=== PATIENT | male | born 1985 | race Hispanic/Latino ===

== ENCOUNTER 2016-06-11 14:58 | Emergency (ER) | payer SELFPAY ==
[2016-06-11] MEDS ORDERED: DECADRON IM ONE (15:34)
[2016-06-11] MEDS ORDERED: TORADOL IM ONE (15:34)
[2016-06-11] MEDS ORDERED: NORCO 5/325 PO ONE (15:34)
--- NOTE | 2016-06-11 16:46 | XRay Report ---
LEFT SHOULDER: Pain. Routine views demonstrate normal bony and soft tissue structures with normal joint alignment of the shoulder. IMPRESSION: Normal study.
[2016-06-11 17:09] VITALS: BP 124/76
--- NOTE | 2016-06-11 17:17 | Emergency Department Report ---
Entered by RAVEN STODDARD, acting as scribe for TRISTIN CAI PA. Upper Extremity - HPI Chief Complaint: Extremity Problem,Nontraumatic Stated Complaint: LT SHOULDER PAIN Upper Extremity: Left Shoulder Occurred When: >5 Days (3 months) Mechanism: Unsure Severity: mild Symptoms: Yes Pain with Movement, No Deformity, No Limited Range of Movement, No Numbness, No Weakness, No Swelling, No Bruising/Ecchymosis, No Laceration or Abrasion Other History: 30 year old male with a PMHx of anxiety and IV drug use presents to the ED c/o left shoulder pain that began 3 months ago. Denies radiation of pain. Denies left shoulder ecchymosis, laceration, swelling, chest pain, SOB, numbness, and tingling. Denies any injury to left shoulder. Denies having a PCP. 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 Uses tobacco products daily. NKDA. ED Review of Systems ROS: Stated complaint: LT SHOULDER PAIN Other details as noted in HPI Comment: All other systems reviewed and negative Constitutional: denies: chills, fever, weakness, other (tingling) Respiratory: denies: cough, shortness of breath, wheezing Cardiovascular: denies: chest pain Endocrine: no symptoms reported Gastrointestinal: denies: nausea, vomiting Musculoskeletal: arthralgia, other (left shoulder pain). denies: back pain, joint swelling (left shoulder) Skin: denies: rash, other (left shoulder ecchymosis and laceration) Neurological: denies: headache, numbness ED Past Medical Hx - Past Medical History Hx Psychiatric Treatment: Yes (Anxiety) Additional medical history: IV drug abuse - Surgical History Past Surgical History?: No - Social History Smoking Status: Current Every Day Smoker Substance Use Type: None - Medications Home Medications: Home Medications Medication Instructions Recorded Confirmed Last Taken Type Cephalexin [Keflex] 500 mg PO Q8HR #30 cap 08/30/15 Unknown Rx Ibuprofen [Motrin] 600 mg PO Q8H PRN #15 tablet 08/30/15 Unknown Rx Sulfamethoxazole/Trimethoprim 1 each PO BID #20 tablet 08/30/15 Unknown Rx [Bactrim DS TAB] Ketorolac [Toradol] 10 mg PO Q6H PRN #20 tablet 06/11/16 Unknown Rx methOCARBAMOL [Robaxin TAB] 500 mg PO BID #20 tab 06/11/16 Unknown Rx Upper Extremity Exam - Exam General: Vital signs noted. Alert and acting appropriately. General: well nourished, well developed, nontoxic in appearance, in no acute distress Head and Torso: No HEENT Abnormality, No Neck Tenderness, No Chest/Lungs Abnormality, No Abdominal Tenderness, No Back Tenderness Shoulder Exam: Yes Normal Range of Motion in Shoulder, No Shoulder Tenderness ( left shoulder), No Clavicle Tenderness, No Shoulder Deformity, No AC Joint Tenderness Arm Exam: No Arm/Humerus Tenderness, No Arm Deformity Elbow: Yes Normal Range of Motion in Elbow, No Elbow Tenderness, No Elbow Deformity Forearm: No Forearm Tenderness, No Forearm Deformity, No Pain with Pronation, No Pain with Supination Wrist: Yes Normal ROM in Wrist, No Wrist Tenderness, No Wrist Deformity, No Snuffbox Tenderness, No Pain with Axial Thumb Compression Hand: Yes Normal ROM in Digit(s), No Hand Tenderness, No Hand Deformity, No Digit Tenderness, No Digit(s) Deformity, No Tendon Dysfunction CMS Exam: Yes Normal Distal Pulses, Yes Normal Capillary Refill, Yes Normal Distal Sensation, No Broken Skin ED Course Vital Signs 06/11/16 15:03 Temperature 98.1 F Pulse Rate 78 Respiratory 18 Rate Blood Pressure 122/81 O2 Sat by Pulse 98 Oximetry ED Medical Decision Making - Radiology Data Radiology results: report reviewed Xr shoulder 2 view Left Normal study per radiologist. Normal bony and soft tissues structures with normal joint alignment of the shoulder. - Medical Decision Making 30 year old male presents to ED with left shoulder pain [id number]. patient denies having previous imaging. Patient has normal imaging study during today's ED visit. Patient is in no apparent distress upon my palpation of his shoulder and has normal ROM, normal radial and brachial pulses in bilateral upper extremities and normal sensation in bilateral upper extremities. patient is stable, neurologically intact and in no acute distress. Critical care attestation.: If time is entered above; I have spent that time in minutes in the direct care of this critically ill patient, excluding procedure time. ED Disposition Clinical Impression: Shoulder joint pain Qualifiers: Laterality: left Qualified Code(s): M25.512 - Pain in left shoulder Disposition: DISCHARGED TO HOME OR SELFCARE Is pt being admited?: No Does the pt Need Aspirin: No Condition: Stable Instructions: Shoulder Sprain (ED) Prescriptions: Ketorolac [Toradol] 10 mg PO Q6H PRN #20 tablet PRN Reason: Pain methOCARBAMOL [Robaxin TAB] 500 mg PO BID #20 tab Referrals: PRIMARY CARE, [Primary Care Provider] - 3-5 Days REX BRYAN MD [Staff Physician] - 3-5 Days Forms: This documentation as recorded by the RICHI yu JASMINE,accurately reflects the service I personally performed and the decisions made by ,TRISTIN CAI PA.
== END 2016-06-11 17:08 | disposition home or self-care (01) ==
LOC: ED 14:58
DX: M25.512 Pain in left shoulder (principal); F17.200 Nicotine dependence, unspecified, uncomplicated
CPT/HCPCS: 73030; 96372; 99283; J1100; J1885

== ENCOUNTER 2019-11-02 21:01 | Emergency (ER) | payer SELFPAY ==
[2019-11-02 21:07] VITALS: BP 134/73
--- NOTE | 2019-11-02 22:01 | XRay Report ---
RIGHT HAND 3 VIEW(S) INDICATION / CLINICAL INFORMATION: Right hand swelling and pain COMPARISON: None available. FINDINGS: BONES / JOINT(S): No acute fracture or subluxation. No significant arthritis. SOFT TISSUES: Mild generalized soft tissue swelling of the ring finger. ADDITIONAL FINDINGS: None. Signer Name: Star Yuan MD Signed: 11/02/2019 9:56 PM Workstation Name: [email or web address] [id number]
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
[2019-11-02] MEDS ORDERED: oxyCODONE /ACETAMINOPHEN 5-325MG TAB PO ONE (22:14)
== END 2019-11-02 23:10 | disposition home or self-care (01) ==
LOC: ED 21:01
DX: S63.91XA Sprain of unspecified part of right wrist and hand, initial encounter (principal); F41.9 Anxiety disorder, unspecified; F17.200 Nicotine dependence, unspecified, uncomplicated; F12.10 Cannabis abuse, uncomplicated; Z79.1 Long term (current) use of non-steroidal anti-inflammatories (NSAID); Z79.899 Other long term (current) drug therapy; X58.XXXA Exposure to other specified factors, initial encounter; Y93.89 Activity, other specified; Y92.89 Other specified places as the place of occurrence of the external cause; Y99.8 Other external cause status

== ENCOUNTER 2019-11-07 07:40 | Emergency (ER) | payer SELFPAY ==
[2019-11-07 08:01] VITALS: BP 153/81
--- NOTE | 2019-11-07 10:06 | Emergency Department Report ---
ED Upper Extremity Inj HPI - General Chief Complaint: Extremity Injury, Upper Stated Complaint: RT HAND INJURY/PAIN Time Seen by Provider: 11/07/19 09:33 Source: patient Mode of arrival: Ambulatory Limitations: No Limitations - History of Present Illness Initial Comments: This is a 34-year-old male nontoxic, well nourished in appearance, no acute signs of distress presents to the ED with c/o of acute on chronic right hand pain x 1 week. Patient was seen on the of this month and was diagnosed with a right hand sprain. X-rays that was performed showed negative for fracture or dislocation. Patient denies following up with a orthopedic doctor. Patient denies any acute injuries or trauma. Patient stated pain is still there. Patient denies any numbness, tingling, fever, chills, nausea, vomiting, chest pain, shortness of breath, headache or stiff neck. Patient denies any joint swelling. Denies any decreased range of motion or decreased sensation. Denies any joint redness. Denies any allergies. MD Complaint: Injury to:: right, hand Other Extremity Injury: Hand: Right Severity scale (0 -10): 8 Improves With: immobilization Worsens With: movement of extremity Associated Symptoms: denies other symptoms. denies: weakness, numbness, neck pain, suspects foreign body, nausea/vomiting, heard/felt popping sensat - Related Data Previous Rx's Medication Instructions Recorded Last Taken Type Ibuprofen [Motrin] 600 mg PO Q8H PRN #15 tablet 08/30/15 Unknown Rx Sulfamethoxazole/Trimethoprim 1 each PO BID #20 tablet 08/30/15 Unknown Rx [Bactrim DS TAB] cephALEXin [Keflex] 500 mg PO Q8HR #30 cap 08/30/15 Unknown Rx Ketorolac [Toradol] 10 mg PO Q6H PRN #20 tablet 06/11/16 Unknown Rx methOCARBAMOL [Robaxin TAB] 500 mg PO BID #20 tab 06/11/16 Unknown Rx Acetaminophen/Codeine [Tylenol 1 tab PO Q8H PRN #4 tab 11/02/19 Unknown Rx /Codeine # 3 tab] Diclofenac Sodium 50 mg PO TID PRN #21 tablet. 11/02/19 Unknown Rx Allergies Allergy/AdvReac Type Severity Reaction Status Date / Time No Known Allergies Allergy Verified 08/30/15 19:17 ED Review of Systems ROS: Stated complaint: RT HAND INJURY/PAIN Other details as noted in HPI Constitutional: denies: chills, fever Eyes: denies: eye pain, eye discharge, vision change ENT: denies: ear pain, throat pain Respiratory: denies: cough, shortness of breath, wheezing Cardiovascular: denies: chest pain, palpitations Endocrine: no symptoms reported Gastrointestinal: denies: abdominal pain, nausea, diarrhea Genitourinary: denies: urgency, dysuria Musculoskeletal: denies: back pain, joint swelling, arthralgia Skin: denies: rash, lesions Neurological: denies: headache, weakness, paresthesias Psychiatric: denies: anxiety, depression Hematological/Lymphatic: denies: easy bleeding, easy bruising ED Past Medical Hx - Past Medical History Previous Medical History?: Yes Hx Psychiatric Treatment: Yes (Anxiety) Additional medical history: IV drug abuse - Social History Smoking Status: Current Every Day Smoker Substance Use Type: Marijuana - Medications Home Medications: Home Medications Medication Instructions Recorded Confirmed Last Taken Type Ibuprofen [Motrin] 600 mg PO Q8H PRN #15 tablet 08/30/15 Unknown Rx Sulfamethoxazole/Trimethoprim 1 each PO BID #20 tablet 08/30/15 Unknown Rx [Bactrim DS TAB] cephALEXin [Keflex] 500 mg PO Q8HR #30 cap 08/30/15 Unknown Rx Ketorolac [Toradol] 10 mg PO Q6H PRN #20 tablet 06/11/16 Unknown Rx methOCARBAMOL [Robaxin TAB] 500 mg PO BID #20 tab 06/11/16 Unknown Rx Acetaminophen/Codeine [Tylenol 1 tab PO Q8H PRN #4 tab 11/02/19 Unknown Rx /Codeine # 3 tab] Diclofenac Sodium 50 mg PO TID PRN #21 tablet. 11/02/19 Unknown Rx ED Physical Exam - General Limitations: No Limitations General appearance: alert, in no apparent distress - Head Head exam: Present: atraumatic, normocephalic - Eye Eye exam: Present: normal appearance - Neck Neck exam: Present: full ROM - Respiratory Respiratory exam: Absent: respiratory distress - Cardiovascular Cardiovascular Exam: Present: regular rate - Extremities Exam Extremities exam: Present: full ROM, tenderness, normal capillary refill. Absent: joint swelling - Expanded Upper Extremity Exam Right General: Present: normal inspection Shoulder Exam: Present: normal inspection, full ROM. Absent: tenderness, swelling Upper Arm exam: Present: normal inspection, full ROM. Absent: tenderness, swelling Elbow exam: Present: normal inspection, full ROM. Absent: tenderness, swelling Forearm Wrist exam: Present: normal inspection, full ROM. Absent: tenderness, swelling, abrasion, laceration, ecchymosis, deformity, crepidus, dislocation, erythema, tenderness over anatomical snuff box, pain with axial thumb loading Hand Wrist exam: Present: full ROM, tenderness. Absent: swelling, abrasion, laceration, ecchymosis, deformity, crepidus, dislocation, erythema, amputation, nail avulsion, subungual hematoma Hand L/R Back: 1 - pain here Vascular: Present: normal capillary refill. Absent: vascular compromise (Neurovascular within normal limits) - Back Exam Back exam: Present: full ROM - Neurological Exam Neurological exam: Present: alert, oriented X3, normal gait - Psychiatric Psychiatric exam: Present: normal affect, normal mood - Skin Skin exam: Present: warm, dry, intact, normal color. Absent: rash ED Course Vital Signs 11/07/19 08:00 Temperature 98.3 F Pulse Rate 72 Respiratory 18 Rate Blood Pressure 153/81 [Right] O2 Sat by Pulse 99 Oximetry - Reevaluation(s) Reevaluation #1: 11/07/19 10:08 Patient is speaking in full sentences with no signs of distress noted. ED Medical Decision Making - Radiology Data Referring Physician: JENNIFER GRIMES Patient Name: TSERING STRONG Date of : 1985 Sex: Male Report Date: 2019-11-02 Report Status: Finalized [address] [address] XRay Report Signed Patient: TSERING STRONG MR#: [id number] : 1985 Acct:[id number] Age/Sex: 34 / M ADM Date: 11/02/19 Loc: ED Attending Dr: Ordering Physician: JENNIFER GRIMES MD Date of Service: 11/02/19 Procedure(s): XR hand 3+V RT Accession Number(s): [id number] cc: JENNIFER GRIMES MD Fluoro Time In Minutes: RIGHT HAND 3 VIEW(S) INDICATION / CLINICAL INFORMATION: Right hand swelling and pain COMPARISON: None available. FINDINGS: BONES / JOINT(S): No acute fracture or subluxation. No significant arthritis. SOFT TISSUES: Mild generalized soft tissue swelling of the ring finger. ADDITIONAL FINDINGS: None. Signer Name: Star Chris MD Signed: 11/02/2019 9:56 PM Workstation Name: [id number] Transcribed By: Dictated By: STAR CHRIS Electronically Authenticated By: STAR CHRIS Signed Date/Time: 11/02/192155 DD/ 54 TD/TT: XRAY FROM 11/02/2019 - Medical Decision Making This is a 34-year-old male that presents with chronic right hand pain. Patient is stable and was examined by me. I referred patient to an orthopedic doctor for further evaluation for possible MRI. X-ray has been obtained during previous visit and dictated by the radiologist. Patient is notified of the x- ray report with noted by the patient. Patient does have normal ROM with no tenderness and no joint swelling. No ecchymosis. no joint redness or swelling. Not warm to touch. No signs of cellulites present. Patient was instructed to RICE therapy. Patient also was instructed to take [id number] medicine such as Motrin for pain control. At time of discharge, the patient does not se em toxic or ill in appearance. No acute signs of distress noted. Patient agrees to discharge treatment plan of care. No further questions noted by the patient. Critical care attestation.: If time is entered above; I have spent that time in minutes in the direct care of this critically ill patient, excluding procedure time. ED Disposition Clinical Impression: Sprain of right hand Qualifiers: Encounter type: initial encounter Qualified Code(s): S63.91XA - Sprain of unspecified part of right wrist and hand, initial encounter Disposition: -07 [facility] SCREENING EXAM-LEFT Is pt being admited?: No Does the pt Need Aspirin: No Condition: Stable Instructions: RICE Therapy (ED) Additional Instructions: Follow-up with a orthopedic doctor in 3-5 days or if symptoms worsen and continue return to emergency room as soon as possible. No physical activity that extremity until cleared by orthopedic doctor Referrals: PRIMARY CARE, [Primary Care Provider] - 3-5 Days DARIELA STRONG MD [Staff Physician] - 3-5 Days GAURANG BARTON MD [Staff Physician] - 3-5 Days Forms: Work/School Release Form(ED)
== END 2019-11-07 11:05 | disposition left against medical advice (07) ==
LOC: ED 07:40
DX: M79.641 Pain in right hand (principal); Z53.21 Procedure and treatment not carried out due to patient leaving prior to being seen by health care provider

== ENCOUNTER 2020-04-21 14:05 | Emergency (ER) | payer SELFPAY ==
[2020-04-21] MEDS ORDERED: SODIUM CHLORIDE 0.9% 1000 ML 1,000 ML IV ONE (14:27)
[2020-04-21] MEDS ORDERED: KETOROLAC 30 MG/1 ML INJ IV ONE (14:27)
[2020-04-21 15:02] LABS: Basophils # (Auto) 0.1 K/mm3 (0.0-0.1); Eosinophils # (Auto) 0.3 K/mm3 (0.0-0.4); Eosinophils % (Auto) 2.4 % (0.0-4.3); Hematocrit 46.9 % (35.5-45.6); Lymphocytes # (Auto) 2.5 K/mm3 (1.2-5.4); Mean Corpuscular HGB Conc 34 % (32-34); Mean Corpuscular Volume 87 fl (84-94); Monocytes # (Auto) 0.8 K/mm3 (0.0-0.8); Platelet Count 299 K/mm3 (140-440); Red Blood Count 5.41 M/mm3 (3.65-5.03); Red Cell Distribution Width 13.6 % (13.2-15.2)
[2020-04-21 15:36] LABS: Alanine Aminotransferase 21 units/L (7-56); Albumin 4.6 g/dL (3.9-5); BUN/Creatinine Ratio 12; Blood Urea Nitrogen 11 mg/dL (9-20); Calcium 9.4 mg/dL (8.4-10.2); Hemolysis Index 14
--- NOTE | 2020-04-21 16:31 | Cat Scan Report ---
FACIAL CT 04/21/2020 HISTORY: Right facial swelling. Periorbital cellulitis. Contrast: Omnipaque 300, 100 mL FINDINGS: Contrast enhanced CT images of the facial structures were obtained. Images are evaluated in the axial, coronal, and sagittal planes. Cellulitic edema is present on the right side of the face, extending upward from the level of the man dible to the periorbital structures. There is no evidence of subcutaneous fluid collection or mass. Paranasal sinuses are essentially clear. Intraorbital structures are unremarkable. There is some periodontal lucency associated with one of the right anterior maxillary tooth roots, po ssibly dehiscent laterally. This may be a source of superficial soft tissue infection and cellulitis. IMPRESSION: Right facial cellulitic changes without evidence of fluid collection. Right anterior maxillary dental disease. This may be related to the source of infection. All CT scans at this location are performed using dose reduction to ALARA by means of automated expos ure control. Signer Name: Tyler Aguirre MD Signed: 04/21/2020 4:27 PM Workstation Name: [id number]
--- NOTE | 2020-04-21 17:00 | Emergency Department Report ---
ED ENT HPI - General Chief complaint: Dental/Oral Stated complaint: TOOTH PAINS FACIAL SWELLING Time Seen by Provider: 04/21/20 14:19 Source: patient Mode of arrival: Ambulatory Limitations: No Limitations - History of Present Illness Initial comments: The patient is a 34-year-old male who presents to ED complaining of pain in the right side of his mouth and associated facial swelling x 6 days . Patient states that the pain started 5 days ago and has increased in severity over the last 2-3 days. The pain is exacerbated by eating and opening of the mouth. Patient states the pain is alleviated initially with pain medication but comes back. Patient states that it radiates towards ear. Patient describes a as a throbbing, pressure-like sensation. Patient states otherwise well and has no other complaints. Patient has had no fevers and no chills. No chest pain, no shortness of breath. No abdominal pain. No shortness of breath or recent trauma to the face. MD complaint: tooth pain - Related Data Previous Rx's Medication Instructions Recorded Last Taken Type Sulfamethoxazole/Trimethoprim 1 each PO BID #20 tablet 08/30/15 Unknown Rx [Bactrim DS TAB] cephALEXin [Keflex] 500 mg PO Q8HR #30 cap 08/30/15 Unknown Rx Ketorolac [Toradol] 10 mg PO Q6H PRN #20 tablet 06/11/16 Unknown Rx methOCARBAMOL [Robaxin TAB] 500 mg PO BID #20 tab 06/11/16 Unknown Rx Diclofenac Sodium 50 mg PO TID PRN #21 tablet. 11/02/19 Unknown Rx Acetaminophen/Codeine [Tylenol 1 tab PO Q8H PRN #4 tab 04/21/20 Unknown Rx /Codeine # 3 tab] Clindamycin [Clindamycin CAP] 300 mg PO Q8H #21 cap 04/21/20 Unknown Rx Ibuprofen [Motrin 600 MG tab] 600 mg PO Q8H PRN #15 tablet 04/21/20 Unknown Rx Allergies Allergy/AdvReac Type Severity Reaction Status Date / Time No Known Allergies Allergy Verified 08/30/15 19:17 ED Dental HPI - General Chief complaint: Dental/Oral Stated complaint: TOOTH PAINS FACIAL SWELLING Time Seen by Provider: 04/21/20 14:19 Source: patient Mode of arrival: Ambulatory Limitations: No Limitations - Related Data Previous Rx's Medication Instructions Recorded Last Taken Type Sulfamethoxazole/Trimethoprim 1 each PO BID #20 tablet 08/30/15 Unknown Rx [Bactrim DS TAB] cephALEXin [Keflex] 500 mg PO Q8HR #30 cap 08/30/15 Unknown Rx Ketorolac [Toradol] 10 mg PO Q6H PRN #20 tablet 06/11/16 Unknown Rx methOCARBAMOL [Robaxin TAB] 500 mg PO BID #20 tab 06/11/16 Unknown Rx Diclofenac Sodium 50 mg PO TID PRN #21 tablet. 11/02/19 Unknown Rx Acetaminophen/Codeine [Tylenol 1 tab PO Q8H PRN #4 tab 04/21/20 Unknown Rx /Codeine # 3 tab] Clindamycin [Clindamycin CAP] 300 mg PO Q8H #21 cap 04/21/20 Unknown Rx Ibuprofen [Motrin 600 MG tab] 600 mg PO Q8H PRN #15 tablet 04/21/20 Unknown Rx Allergies Allergy/AdvReac Type Severity Reaction Status Date / Time No Known Allergies Allergy Verified 08/30/15 19:17 ED Review of Systems ROS: Stated complaint: TOOTH PAINS FACIAL SWELLING Other details as noted in HPI Comment: All other systems reviewed and negative ED Past Medical Hx - Past Medical History Previous Medical History?: Yes Hx Psychiatric Treatment: Yes (Anxiety) Additional medical history: IV drug abuse - Surgical History Past Surgical History?: No - Social History Smoking Status: Current Every Day Smoker Substance Use Type: Heroin - Medications Home Medications: Home Medications Medication Instructions Recorded Confirmed Last Taken Type Sulfamethoxazole/Trimethoprim 1 each PO BID #20 tablet 08/30/15 Unknown Rx [Bactrim DS TAB] cephALEXin [Keflex] 500 mg PO Q8HR #30 cap 08/30/15 Unknown Rx Ketorolac [Toradol] 10 mg PO Q6H PRN #20 tablet 06/11/16 Unknown Rx methOCARBAMOL [Robaxin TAB] 500 mg PO BID #20 tab 06/11/16 Unknown Rx Diclofenac Sodium 50 mg PO TID PRN #21 tablet. 11/02/19 Unknown Rx Acetaminophen/Codeine [Tylenol 1 tab PO Q8H PRN #4 tab 04/21/20 Unknown Rx /Codeine # 3 tab] Clindamycin [Clindamycin CAP] 300 mg PO Q8H #21 cap 04/21/20 Unknown Rx Ibuprofen [Motrin 600 MG tab] 600 mg PO Q8H PRN #15 tablet 04/21/20 Unknown Rx ED Physical Exam - General Limitations: No Limitations General appearance: alert, in no apparent distress - Head Head exam: Present: atraumatic, normocephalic - Eye Eye exam: Present: normal appearance, PERRL, EOMI, other (Facial/cheek tenderness and swelling noted). Absent: conjunctival injection, periorbital swelling, periorbital tenderness Pupils: Present: normal accommodation - ENT ENT exam: Present: mucous membranes moist - Expanded ENT Exam Expanded Mouth exam: Present: normal external inspection Teeth exam: Present: dental caries, fractured tooth # 1 - Fractured, Dental Tenderness Throat exam: Positive: normal inspection. Negative: tonsillomegaly, tonsillar exudate, R peritonsillar mass - Neck Neck exam: Present: normal inspection - Respiratory Respiratory exam: Present: normal lung sounds bilaterally. Absent: respiratory distress - Cardiovascular Cardiovascular Exam: Present: regular rate, normal rhythm. Absent: systolic murmur, diastolic murmur, rubs, gallop - GI/Abdominal GI/Abdominal exam: Present: soft, normal bowel sounds - Rectal Rectal exam: Present: deferred - Extremities Exam Extremities exam: Present: normal inspection - Back Exam Back exam: Present: normal inspection - Neurological Exam Neurological exam: Present: alert, oriented X3 - Psychiatric Psychiatric exam: Present: normal affect, normal mood - Skin Skin exam: Present: warm, dry, intact, normal color. Absent: rash ED Course Vital Signs 04/21/20 04/21/20 14:05 15:36 Temperature 98.4 F Pulse Rate 92 H Respiratory 18 16 Rate Blood Pressure 141/91 O2 Sat by Pulse 99 Oximetry ED Medical Decision Making - Lab Data Result diagrams: 04/21/20 14:42 04/21/20 14:42 Laboratory Last Values WBC 11.5 K/mm3 (4.5-11.0) H 04/21/20 14:42 RBC 5.41 M/mm3 (3.65-5.03) H 04/21/20 14:42 Hgb 16.0 gm/dl (11.8-15.2) H 04/21/20 14:42 Hct 46.9 % (35.5-45.6) H 04/21/20 14:42 MCV 87 fl (84-94) 04/21/20 14:42 MCH 30 pg (28-32) 04/21/20 14:42 MCHC 34 % (32-34) 04/21/20 14:42 RDW 13.6 % (13.2-15.2) 04/21/20 14:42 Plt Count 299 K/mm3 (140-440) 04/21/20 14:42 Lymph % (Auto) 22.0 % (13.4-35.0) 04/21/20 14:42 [place] % (Auto) 7.0 % (0.0-7.3) 04/21/20 14:42 Eos % (Auto) 2.4 % (0.0-4.3) 04/21/20 14:42 Baso % (Auto) 1.0 % (0.0-1.8) 04/21/20 14:42 Lymph # (Auto) 2.5 K/mm3 (1.2-5.4) 04/21/20 14:42 [place] # (Auto) 0.8 K/mm3 (0.0-0.8) 04/21/20 14:42 Eos # (Auto) 0.3 K/mm3 (0.0-0.4) 04/21/20 14:42 Baso # (Auto) 0.1 K/mm3 (0.0-0.1) 04/21/20 14:42 Seg Neutrophils % 67.6 % (40.0-70.0) 04/21/20 14:42 Seg Neutrophils # 7.8 K/mm3 (1.8-7.7) H 04/21/20 14:42 Sodium 141 mmol/L (137-145) 04/21/20 14:42 Potassium 4.4 mmol/L (3.6-5.0) 04/21/20 14:42 Chloride 103.7 mmol/L (98-107) 04/21/20 14:42 Carbon Dioxide 23 mmol/L (22-30) 04/21/20 14:42 Anion Gap 19 mmol/L 04/21/20 14:42 BUN 11 mg/dL (9-20) 04/21/20 14:42 Creatinine 0.9 mg/dL (0.8-1.3) 04/21/20 14:42 Estimated GFR > 60 ml/min 04/21/20 14:42 BUN/Creatinine Ratio 12 % 04/21/20 14:42 Glucose 107 mg/dL (75-100) H 04/21/20 14:42 Calcium 9.4 mg/dL (8.4-10.2) 04/21/20 14:42 Total Bilirubin 0.30 mg/dL (0.1-1.2) 04/21/20 14:42 AST 18 units/L (5-40) 04/21/20 14:42 ALT 21 units/L (7-56) 04/21/20 14:42 Alkaline Phosphatase 63 units/L (35-129) 04/21/20 14:42 Total Protein 7.6 g/dL (6.3-8.2) 04/21/20 14:42 Albumin 4.6 g/dL (3.9-5) 04/21/20 14:42 Albumin/Globulin Ratio 1.5 % 04/21/20 14:42 - Radiology Data Radiology results: report reviewed, image reviewed FACIAL CT 04/21/2020 HISTORY: Right facial swelling. Periorbital cellulitis. Contrast: Omnipaque 300, 100 mL FINDINGS: Contrast enhanced CT images of the facial structures were obtained. Images are evaluated in the axial, coronal, and sagittal planes. Cellulitic edema is present on the right side of the face, extending upward from the level of the mandible to the periorbital structures. There is no evidence of subcutaneous fluid collection or mass. Paranasal sinuses are essentially clear. Intraorbital structures are unremarkable. There is some periodontal lucency associated with one of the right anterior maxillary tooth roots, possibly dehiscent laterally. This may be a source of superficial soft tissue infection and cellulitis. IMPRESSION: Right facial cellulitic changes without evidence of fluid collectio n. Right anterior maxillary dental disease. This may be related to the source of infection. All CT scans at this location are performed using dose reduction to ALARA by means of automated exposure control. Signer Name: Tyler Aguirre MD Signed: 04/21/2020 4:27 PM Workstation Name: [id number] Transcribed By: BRITTNEY Dictated By: Tyler Aguirre MD Electronically Authenticated By: Tyler Aguirre MD Signed Date/Time: 04/21/20 7936 - Medical Decision Making 34-year-old male who presents with right-sided Facial pain secondary to odontogenic caries ED course: Patient received in the mycin, Toradol in the ED Odontogenic infection versus ear infection. Based upon history and physical examination, pain is a result of an infection of tooth number 4 and that the pain Pt feels on the right side of his face and towards the ear is referred pain from this infectious process. Pt has no evidence of acute impending airway compromise. At this point, patient will be discharged home on some antibiotics and pain trial, she will do well with an outpatient course of antibiotics. Follow up with the Dental Clinic as referred Vital signs are normal patient is in no acute distress. Pt had an effect uneventful ED stay Critical care attestation.: If time is entered above; I have spent that time in minutes in the direct care of this critically ill patient, excluding procedure time. ED Disposition Clinical Impression: Dental abscess, Facial cellulitis Disposition: TO HOME OR SELFCARE Is pt being admited?: No Does the pt Need Aspirin: No Condition: Stable Instructions: Cellulitis, Adult, Dental Abscess Additional Instructions: Make sure to follow up with the dentist as discussed. Take all your medications as you've been prescribed. If you have any worsening symptoms or develop new symptoms please return to ED immediately. Prescriptions: Clindamycin [Clindamycin CAP] 300 mg PO Q8H #21 cap Ibuprofen [Motrin 600 MG tab] 600 mg PO Q8H PRN #15 tablet PRN Reason: Pain Acetaminophen/Codeine [Tylenol /Codeine # 3 tab] 1 tab PO Q8H PRN #4 tab PRN Reason: Pain , Severe (7-10) Referrals: [facility] [Outside] - 3-5 Days [facility] [Outside] - 3-5 Days Forms: Work/School Release Form(ED) Time of Disposition: 17:05
[2020-04-21 17:26] VITALS: BP 127/74
== END 2020-04-21 17:28 | disposition home or self-care (01) ==
LOC: ED 14:05
DX: K04.7 Periapical abscess without sinus (principal); L03.211 Cellulitis of face; F17.200 Nicotine dependence, unspecified, uncomplicated; F41.9 Anxiety disorder, unspecified; F19.90 Other psychoactive substance use, unspecified, uncomplicated; Z79.899 Other long term (current) drug therapy
CPT/HCPCS: 36415; 70487; 80053; 85025; 96365; 96375; 99284; J1885; J7030; Q9967

== ENCOUNTER 2020-08-03 18:26 | Emergency (ER) | payer SELFPAY ==
[2020-08-03 18:45] VITALS: BP 120/74
[2020-08-03] MEDS ORDERED: FAMOTIDINE 20 MG TAB PO ONE (21:34)
[2020-08-03 21:53] LABS: Basophils # (Auto) 0.1 K/mm3 (0.0-0.1); Basophils % (Auto) 0.7 % (0.0-1.8); Eosinophils # (Auto) 0.3 K/mm3 (0.0-0.4); Eosinophils % (Auto) 4.1 % (0.0-4.3); Hematocrit 44.7 % (35.5-45.6); Hemoglobin 15.5 gm/dl (11.8-15.2); Lymphocytes # (Auto) 2.6 K/mm3 (1.2-5.4); Lymphocytes % (Auto) 32.1 % (13.4-35.0); Mean Corpuscular HGB Conc 35 % (32-34); Mean Corpuscular Volume 88 fl (84-94); Monocytes # (Auto) 0.7 K/mm3 (0.0-0.8); Monocytes % (Auto) 9.2 % (0.0-7.3); Platelet Count 273 K/mm3 (140-440); Red Blood Count 5.09 M/mm3 (3.65-5.03); Red Cell Distribution Width 13.6 % (13.2-15.2)
[2020-08-03 22:19] LABS: Alanine Aminotransferase 17 units/L (7-56); Albumin 4.2 g/dL (3.9-5); BUN/Creatinine Ratio 13; Blood Urea Nitrogen 12 mg/dL (9-20); Calcium 8.6 mg/dL (8.4-10.2); Hemolysis Index 18
--- NOTE | 2020-08-04 00:06 | Emergency Department Report ---
ED Abdominal Pain HPI - General Chief Complaint: Abdominal Pain Stated Complaint: UPPER ABD PAIN Source: patient Mode of arrival: Ambulatory Limitations: No Limitations - History of Present Illness Initial Comments: Patient is a 35-year-old white male with a history of IV drug use and heavy tobacco abuse who presents to the ED with complaint of acute onset persistent epigastric pain intermittently for the last 1 month with nausea. Patient admits that he has been taking NSAIDs for the same pain most of the time without any food. Patient denies hematemesis, vomiting, diarrhea, chest pain, shortness of breath, dizziness, syncope, cough, palpitations, headache, diaphoresis, diarrhea, dysuria, testicular pain, hematochezia, change in vision or headache. MD Complaint: abdominal pain (Epigastric pain) -: Gradual, month(s) (1) Location: epigastric Radiation: none Migration to: epigastric Severity: moderate, severe Severity scale (0 -10): 6 Quality: aching, sharp Consistency: intermittent Improves With: nothing Worsens With: eating Associated Symptoms: denies other symptoms, nausea. denies: vomiting, diarrhea, fever, chills, constipation, hematemesis, hematochezia, melena, hematuria, anorexia, syncope, other - Related Data Previous Rx's Medication Instructions Recorded Last Taken Type Sulfamethoxazole/Trimethoprim 1 each PO BID #20 tablet 08/30/15 Unknown Rx [Bactrim DS TAB] cephALEXin [Keflex] 500 mg PO Q8HR #30 cap 08/30/15 Unknown Rx Ketorolac [Toradol] 10 mg PO Q6H PRN #20 tablet 06/11/16 Unknown Rx methOCARBAMOL [Robaxin TAB] 500 mg PO BID #20 tab 06/11/16 Unknown Rx Diclofenac Sodium 50 mg PO TID PRN #21 tablet. 11/02/19 Unknown Rx Acetaminophen/Codeine [Tylenol 1 tab PO Q8H PRN #4 tab 04/21/20 Unknown Rx /Codeine # 3 tab] Clindamycin [Clindamycin CAP] 300 mg PO Q8H #21 cap 04/21/20 Unknown Rx Ibuprofen [Motrin 600 MG tab] 600 mg PO Q8H PRN #15 tablet 04/21/20 Unknown Rx Dicyclomine [Bentyl] 20 mg PO Q6H PRN #30 tablet 08/04/20 Unknown Rx Esomeprazole Magnesium [NexIUM] 40 mg PO QDAY #30 capsule. 08/04/20 Unknown Rx Famotidine [Pepcid] 20 mg PO BID #60 tablet 08/04/20 Unknown Rx Ondansetron [Zofran Odt] 4 mg PO Q6HR PRN #15 tab.rapdis 08/04/20 Unknown Rx Allergies Allergy/AdvReac Type Severity Reaction Status Date / Time No Known Allergies Allergy Verified 08/30/15 19:17 ED Review of Systems ROS: Stated complaint: UPPER ABD PAIN Other details as noted in HPI Constitutional: denies: chills, fever Eyes: denies: eye pain, eye discharge, vision change ENT: denies: ear pain, throat pain Respiratory: denies: cough, shortness of breath, wheezing Cardiovascular: denies: chest pain, palpitations Endocrine: no symptoms reported Gastrointestinal: abdominal pain (Epigastric pain), nausea. denies: vomiting, diarrhea Genitourinary: denies: urgency, dysuria Musculoskeletal: denies: back pain, joint swelling, arthralgia Skin: denies: rash, lesions Neurological: denies: headache, weakness, paresthesias Psychiatric: denies: anxiety, depression Hematological/Lymphatic: denies: easy bleeding, easy bruising ED Past Medical Hx - Past Medical History Previous Medical History?: Yes Hx Psychiatric Treatment: Yes (Anxiety) Additional medical history: IV drug abuse - Surgical History Past Surgical History?: No - Social History Smoking Status: Current Every Day Smoker Substance Use Type: Heroin - Medications Home Medications: Home Medications Medication Instructions Recorded Confirmed Last Taken Type Sulfamethoxazole/Trimethoprim 1 each PO BID #20 tablet 08/30/15 Unknown Rx [Bactrim DS TAB] cephALEXin [Keflex] 500 mg PO Q8HR #30 cap 08/30/15 Unknown Rx Ketorolac [Toradol] 10 mg PO Q6H PRN #20 tablet 06/11/16 Unknown Rx methOCARBAMOL [Robaxin TAB] 500 mg PO BID #20 tab 06/11/16 Unknown Rx Diclofenac Sodium 50 mg PO TID PRN #21 tablet. 11/02/19 Unknown Rx Acetaminophen/Codeine [Tylenol 1 tab PO Q8H PRN #4 tab 04/21/20 Unknown Rx /Codeine # 3 tab] Clindamycin [Clindamycin CAP] 300 mg PO Q8H #21 cap 04/21/20 Unknown Rx Ibuprofen [Motrin 600 MG tab] 600 mg PO Q8H PRN #15 tablet 04/21/20 Unknown Rx Dicyclomine [Bentyl] 20 mg PO Q6H PRN #30 tablet 08/04/20 Unknown Rx Esomeprazole Magnesium [NexIUM] 40 mg PO QDAY #30 capsule. 08/04/20 Unknown Rx Famotidine [Pepcid] 20 mg PO BID #60 tablet 08/04/20 Unknown Rx Ondansetron [Zofran Odt] 4 mg PO Q6HR PRN #15 tab.rapdis 08/04/20 Unknown Rx ED Physical Exam - General Limitations: No Limitations General appearance: alert, in no apparent distress - Head Head exam: Present: atraumatic, normocephalic, normal inspection - Eye Eye exam: Present: normal appearance, PERRL, EOMI Pupils: Present: normal accommodation - ENT ENT exam: Present: normal exam, normal orophraynx, mucous membranes moist, TM's normal bilaterally, normal external ear exam - Neck Neck exam: Present: normal inspection, full ROM - Respiratory Respiratory exam: Present: normal lung sounds bilaterally. Absent: respiratory distress, wheezes, rales, stridor, chest wall tenderness, accessory muscle use, decreased breath sounds, prolonged expiratory - Cardiovascular Cardiovascular Exam: Present: regular rate, normal rhythm, normal heart sounds. Absent: systolic murmur, diastolic murmur, rubs, gallop - GI/Abdominal GI/Abdominal exam: Present: soft, normal bowel sounds. Absent: distended, tenderness, guarding, rebound, hyperactive bowel sounds, hypoactive bowel sounds - Rectal Rectal exam: Present: deferred - Extremities Exam Extremities exam: Present: normal inspection, full ROM, normal capillary refill - Back Exam Back exam: Present: normal inspection, full ROM. Absent: tenderness, CVA te nderness (R), CVA tenderness (L), muscle spasm, paraspinal tenderness, vertebral tenderness - Neurological Exam Neurological exam: Present: alert, oriented X3, CN II-XII intact, normal gait, reflexes normal - Psychiatric Psychiatric exam: Present: normal affect, normal mood - Skin Skin exam: Present: warm, dry, intact, normal color. Absent: rash ED Course Vital Signs 08/03/20 18:44 Temperature 98.7 F Pulse Rate 68 Respiratory 14 Rate Blood Pressure 120/74 O2 Sat by Pulse 98 Oximetry ED Medical Decision Making - Lab Data Result diagrams: 08/03/20 21:42 08/03/20 21:42 - Medical Decision Making This is a 35-year-old white male with a history of IV drug use and heavy tobacco abuse who presents to the ED with complaint of acute onset persistent epigastric pain intermittently for the last 1 month with nausea. Patient admits that he has been taking NSAIDs for the same pain most of the time without any food. In the ED, patient is alert and oriented x3 and is not in any distress. Patient is hemodynamically stable. Lab test results were reviewed and are all nonactionable. Patient was treated with antacids in the ED and on reevaluation, patient felt better. Patient will discharge home on medications including antacids and antiemetics and was advised to follow-up with his primary care physician in 5 to 7 days for reevaluation. Patient was also given a referral to the GI physician Dr. Jessie Julio for further evaluation. Patient was advised to contact Dr. Jessie Julio's office first thing in the morning on Tuesday, August 04, 2020 to schedule a follow-up appointment. Patient was otherwise advised return to the ED immediately if symptoms get worse. - Differential Diagnosis GERD; gastritis; peptic ulcer disease; pancreatitis Critical care attestation.: If time is entered above; I have spent that time in minutes in the direct care of this critically ill patient, excluding procedure time. ED Disposition Clinical Impression: Abdominal pain, acute, epigastric GERD (gastroesophageal reflux disease) Qualifiers: Esophagitis presence: esophagitis presence not specified Qualified Code(s): K21.9 - Gastro-esophageal reflux disease without esophagitis Disposition: DC-01 TO HOME OR SELFCARE Is pt being admited?: No Does the pt Need Aspirin: No Condition: Stable Instructions: Abdominal Pain, Adult, [id number], Heartburn, [id number], Gastroesophageal Reflux Disease, Adult, [id number] Additional Instructions: All lab test results were reviewed and are all nonactionable. Your symptoms are likely due to GERD or acid reflux but we can also not rule out any gastric ulcers which can only be diagnosed upon endoscopic procedures by GI physicians. Therefore take medications as advised, follow-up with the GI physician Dr. Jessie Julio for further evaluation. Contact Dr. Jessie Julio office first thing in the morning on Tuesday, August 04, 2020 to schedule a follow-up appointment. Return to the ED immediately if symptoms get worse. Prescriptions: Dicyclomine [Bentyl] 20 mg PO Q6H PRN #30 tablet PRN Reason: abdominal pain Esomeprazole Magnesium [NexIUM] 40 mg PO QDAY #30 capsule. Famotidine [Pepcid] 20 mg PO BID #60 tablet Ondansetron [Zofran Odt] 4 mg PO Q6HR PRN #15 tab.rapdis PRN Reason: Nausea Referrals: JESSIE JULIO MD [Staff Physician] - 3-5 Days [facility] [Provider Group] - 7-10 days Time of Disposition: 00:04 Print Language: LAO
== END 2020-08-03 23:50 | disposition home or self-care (01) ==
LOC: ED 18:26
DX: K21.9 Gastro-esophageal reflux disease without esophagitis (principal); F41.9 Anxiety disorder, unspecified; F17.200 Nicotine dependence, unspecified, uncomplicated; F11.90 Opioid use, unspecified, uncomplicated; Z79.899 Other long term (current) drug therapy
CPT/HCPCS: 36415; 80053; 83690; 85025; 99283

== ENCOUNTER 2020-10-02 16:38 | Emergency (ER) | payer SELFPAY ==
[2020-10-02 18:46] VITALS: BP 136/93
--- NOTE | 2020-10-02 19:14 | Emergency Department Report ---
ED Eye Problem HPI - General Chief complaint: Eye Problems Stated complaint: LT EYE RED HURTS Time Seen by Provider: 10/02/20 19:04 Source: patient Mode of arrival: Ambulatory Limitations: No Limitations - History of Present Illness Initial comments: Patient is a 35-year-old male presents emergency room with complaints of left eye redness, irritation, pain that began 3 days ago. He has associated drainage, crusting, eyelash matting, photophobia. He states his vision feels very mildly blurry but he is able to see. He denies any sick contacts. He denies any contact lens use. He denies anything getting into the eye. No past medical history. No allergies to medications. - Related Data Previous Rx's Medication Instructions Recorded Last Taken Type Sulfamethoxazole/Trimethoprim 1 each PO BID #20 tablet 08/30/15 Unknown Rx [Bactrim DS TAB] cephALEXin [Keflex] 500 mg PO Q8HR #30 cap 08/30/15 Unknown Rx Ketorolac [Toradol] 10 mg PO Q6H PRN #20 tablet 06/11/16 Unknown Rx methOCARBAMOL [Robaxin TAB] 500 mg PO BID #20 tab 06/11/16 Unknown Rx Diclofenac Sodium 50 mg PO TID PRN #21 tablet. 11/02/19 Unknown Rx Acetaminophen/Codeine [Tylenol 1 tab PO Q8H PRN #4 tab 04/21/20 Unknown Rx /Codeine # 3 tab] Clindamycin [Clindamycin CAP] 300 mg PO Q8H #21 cap 04/21/20 Unknown Rx Ibuprofen [Motrin 600 MG tab] 600 mg PO Q8H PRN #15 tablet 04/21/20 Unknown Rx Dicyclomine [Bentyl] 20 mg PO Q6H PRN #30 tablet 08/04/20 Unknown Rx Esomeprazole Magnesium [NexIUM] 40 mg PO QDAY #30 capsule. 08/04/20 Unknown Rx Famotidine [Pepcid] 20 mg PO BID #60 tablet 08/04/20 Unknown Rx Ondansetron [Zofran Odt] 4 mg PO Q6HR PRN #15 tab.rapdis 08/04/20 Unknown Rx Ketotifen Fumarate 1 drop OS Q12HR #1 bottle 10/02/20 Unknown Rx Polymyxin B Sulf/Trimethoprim 1 drop OS Q3HR 7 Days #1 bottle 10/02/20 Unknown Rx [Polytrim Eye Drops] Allergies Allergy/AdvReac Type Severity Reaction Status Date / Time No Known Allergies Allergy Verified 10/02/20 18:42 ED Review of Systems ROS: Stated complaint: LT EYE RED HURTS Other details as noted in HPI Comment: All other systems reviewed and negative ED Past Medical Hx - Past Medical History Hx Psychiatric Treatment: Yes (Anxiety) Additional medical history: IV drug abuse - Surgical History Past Surgical History?: No - Social History Smoking Status: Current Every Day Smoker Substance Use Type: Heroin - Medications Home Medications: Home Medications Medication Instructions Recorded Confirmed Last Taken Type Sulfamethoxazole/Trimethoprim 1 each PO BID #20 tablet 08/30/15 Unknown Rx [Bactrim DS TAB] cephALEXin [Keflex] 500 mg PO Q8HR #30 cap 08/30/15 Unknown Rx Ketorolac [Toradol] 10 mg PO Q6H PRN #20 tablet 06/11/16 Unknown Rx methOCARBAMOL [Robaxin TAB] 500 mg PO BID #20 tab 06/11/16 Unknown Rx Diclofenac Sodium 50 mg PO TID PRN #21 tablet. 11/02/19 Unknown Rx Acetaminophen/Codeine [Tylenol 1 tab PO Q8H PRN #4 tab 04/21/20 Unknown Rx /Codeine # 3 tab] Clindamycin [Clindamycin CAP] 300 mg PO Q8H #21 cap 04/21/20 Unknown Rx Ibuprofen [Motrin 600 MG tab] 600 mg PO Q8H PRN #15 tablet 04/21/20 Unknown Rx Dicyclomine [Bentyl] 20 mg PO Q6H PRN #30 tablet 08/04/20 Unknown Rx Esomeprazole Magnesium [NexIUM] 40 mg PO QDAY #30 capsule. 08/04/20 Unknown Rx Famotidine [Pepcid] 20 mg PO BID #60 tablet 08/04/20 Unknown Rx Ondansetron [Zofran Odt] 4 mg PO Q6HR PRN #15 tab.rapdis 08/04/20 Unknown Rx Ketotifen Fumarate 1 drop OS Q12HR #1 bottle 10/02/20 Unknown Rx Polymyxin B Sulf/Trimethoprim 1 drop OS Q3HR 7 Days #1 bottle 10/02/20 Unknown Rx [Polytrim Eye Drops] ED Physical Exam - General Limitations: No Limitations General appearance: alert, in no apparent distress - Head Head exam: Present: atraumatic, normocephalic - Eye Eye exam: Present: PERRL, EOMI, conjunctival injection (left). Absent: periorbital swelling, periorbital tenderness Pupils: Present: normal accommodation - ENT ENT exam: Present: mucous membranes moist - Respiratory Respiratory exam: Absent: respiratory distress, accessory muscle use - Neurological Exam Neurological exam: Present: alert, oriented X3 - Psychiatric Psychiatric exam: Present: normal affect, normal mood - Skin Skin exam: Present: warm, dry, intact ED Course Vital Signs 10/02/20 18:45 Temperature 98.6 F Pulse Rate 77 Respiratory 20 Rate Blood Pressure 136/93 O2 Sat by Pulse 98 Oximetry ED Medical Decision Making - Medical Decision Making Patient is a 35-year-old male presents emergency room with complaints of left eye redness, irritation, pain that began 3 days ago. He has associated drainage, crusting, eyelash matting, photophobia. He states his vision feels very mildly blurry but he is able to see. He denies any sick contacts. He denies any contact lens use. He denies anything getting into the eye. No past medical history. No allergies to medications. Vitals are stable. On exam: Left conjunctival injection, EOMI, PERRLA, no periorbital edema or erythema or tenderness to palpation. Examination appears likely consistent with conjunctivitis. Patient given prescription for medications. Advised patient Please use medication as prescribed. Please separate using eyedrops by 1 hour. Please wash your hands before and after placing drops. Avoid rubbing the eyes. Follow-up with case resource manager. Return to emergency room for new or worsening symptoms. Critical care attestation.: If time is entered above; I have spent that time in minutes in the direct care of this critically ill patient, excluding procedure time. ED Disposition Clinical Impression: Conjunctivitis Qualifiers: Conjunctivitis type: acute Acute conjunctivitis type: unspecified Laterality: left Qualified Code(s): H10.32 - Unspecified acute conjunctivitis, left eye Disposition: HOME / SELF CARE / HOMELESS Is pt being admited?: No Does the pt Need Aspirin: No Condition: Stable Instructions: Bacterial Conjunctivitis, Adult Additional Instructions: Please use medication as prescribed. Please separate using eyedrops by 1 hour. Please wash your hands before and after placing drops. Avoid rubbing the eyes. Follow-up with case resource manager. Return to emergency room for new or worsening symptoms. Prescriptions: Ketotifen Fumarate 1 drop OS Q12HR #1 bottle Polymyxin B Sulf/Trimethoprim [Polytrim Eye Drops] 1 drop OS Q3HR 7 Days #1 bottle Referrals: MONIKA BLACK MD [Staff Physician] - 2-3 Days [facility] [Provider Group] - 2-3 Days Time of Disposition: 19:10 Print Language: [place]
== END 2020-10-02 20:41 | disposition home or self-care (01) ==
LOC: ED 16:38
DX: H10.9 Unspecified conjunctivitis (principal); F41.9 Anxiety disorder, unspecified; F17.200 Nicotine dependence, unspecified, uncomplicated; Z79.899 Other long term (current) drug therapy
CPT/HCPCS: 99281